=== PATIENT | female | born 1970 ===

== ENCOUNTER 2017-05-21 11:10 | Emergency (ER) | payer MEDICARE, MEDICAID ==
--- NOTE | 2017-05-21 11:25 | C.PDOC ---
History Of Present Illness 47 yo female w.o significant pMHx come in for evaluation of pain on urination, urinary frequency and hesitancy for past week associated with suprapubic pressure and discomfort, white thick discharges. Pt sts, was seen at Clinic week ago due to same complaints when was given medication without improvement. Otherwise, pt denies fever, chills, headache, sore throat, abd. pain, N/V/D, back pain, hematuria. Ambulate to ED for evaluation, not in any apparent distress. Time Seen by Provider: 05/21/17 11:16 Chief Complaint (Nursing): Female Genitourinary History Per: Patient Onset/Duration Of Symptoms: Gradual Current Symptoms Are (Timing): Still Present Past Medical History Reviewed: Historical Data, Nursing Documentation, Vital Signs Vital Signs: Last Vital Signs Temp 99 F 05/21/17 11:12 Pulse 76 05/21/17 11:12 Resp 18 05/21/17 11:12 BP 116/73 05/21/17 11:12 Pulse Ox 98 05/21/17 11:52 - Medical History PMH: Bipolar Disorder Denies: Diabetes Surgical History: No Surg Hx Family History: States: No Known Family Hx - Social History Hx Alcohol Use: Yes Hx Substance Use: No - Immunization History Hx Tetanus Toxoid Vaccination: No Hx Influenza Vaccination: No Hx Pneumococcal Vaccination: No Review Of Systems Except As Marked, All Systems Reviewed And Found Negative. Constitutional: Negative for: Fever, Chills ENT: Negative for: Throat Pain Respiratory: Negative for: Cough, Shortness of Breath Gastrointestinal: Negative for: Nausea, Vomiting, Abdominal Pain, Diarrhea Genitourinary: Positive for: Dysuria, Frequency, Vaginal Discharge. Negative for: Incontinence, Hematuria, Vaginal Bleeding, Pelvic Pain, Rash Musculoskeletal: Negative for: Back Pain Skin: Negative for: Rash Neurological: Negative for: Weakness, Headache, Dizziness Physical Exam - Physical Exam Appears: Well, Non-toxic, No Acute Distress Skin: Normal Color, Warm, Dry, No Rash Eye(s): bilateral: PERRL Oral Mucosa: Moist Throat: Normal, No Erythema, No Exudate Neck: Supple Gastrointestinal/Abdominal: Soft, Tenderness (mild suprapubic tenderness), No Distention, No Guarding Back: No CVA Tenderness Pelvic: Normal Bimanual Exam, Vaginal Discharge (scant thick white), No Cervical Motion Tenderness Extremity: Normal ROM, No Pedal Edema Neurological/Psych: Oriented x3, Normal Speech ED Course And Treatment - Laboratory Results Urine POC: Negative O2 Sat by Pulse Oximetry: 98 Pulse Ox Interpretation: Normal Progress Note: On re-evaluation, pt is afebrile, hemodynamiclay stable. non- toxic. Tolerate Po well in ED. ENT: no acute findings. Abd: benign, (-) guarding, (-) rebound. Back: (-) CVA tenderness. UA (+) WBC. UCX-pending. Pt advised and ref. to F/u with PMD, MECHANICAL ENGINEERING ADVISOR in 2-3 days for re-eavl. return if any new changes. Disposition Counseled Patient/Family Regarding: Studies Performed, Diagnosis, Need For Followup, Rx Given - Disposition Referrals: at [facility] [Outside] Disposition: HOME/ ROUTINE Disposition Time: 12:01 Condition: STABLE Additional Instructions: Encourage fluids Take medication as prescribed Follow up with PMD, MECHANICAL ENGINEERING ADVISOR in 1-2 days for re-evaluation. Return to ED if any worsening or new changes. Prescriptions: Miconazole [Miconazole 7] 100 mg VG HS #7 sup Nitrofurantoin Macrocrystals [Macrobid] 1 cap PO BID #14 cap Instructions: Urinary Tract Infection in Women (ED) Print Language: TONGAN - Clinical Impression Clinical Impression: UTI (urinary tract infection)
[2017-05-21 11:46] LABS: SQUAMOUS EPITHIAL 8 /hpf (0-5); URINE BACTERIA OCC (<OCC); URINE BILIRUBIN NEGATIVE (NEGATIVE); URINE BLOOD NEGATIVE (NEGATIVE); URINE CLARITY Hazy (Clear); URINE COLOR Yellow (YELLOW); URINE GLUCOSE (UA) NORMAL (Normal); URINE LEUKOCYTE ESTERASE 3+ Leu/uL (Negative); URINE NITRATE NEGATIVE (NEGATIVE); URINE PROTEIN NEGATIVE (NEGATIVE); URINE UROBILINOGEN NORMAL mg/dL (0.2-1.0)
[2017-05-21 12:41] VITALS: BP 107/72; PULSE 60; RESP 14; TEMP 97.3; O2SAT 100
== END 2017-05-21 12:45 | disposition home or self-care (01) ==
LOC: C.ER 11:10
DX: N39.0 Urinary tract infection, site not specified (principal)

== ENCOUNTER 2017-05-29 18:00 | Emergency (ER) | payer MEDICARE, MEDICAID ==
[2017-05-29 18:21] VITALS: BMI 28.5
[2017-05-29 18:25] VITALS: BP 100/69; PULSE 67; RESP 18; TEMP 99.1; O2SAT 98
[2017-05-29 18:47] LABS: HCG,QUALITATIVE URINE NEGATIVE (NEGATIVE)
[2017-05-29 18:48] LABS: SQUAMOUS EPITHIAL 4 /hpf (0-5); URINE BILIRUBIN NEGATIVE (NEGATIVE); URINE BLOOD NEGATIVE (NEGATIVE); URINE CLARITY Clear (Clear); URINE COLOR Yellow (YELLOW); URINE GLUCOSE (UA) NORMAL (Normal); URINE LEUKOCYTE ESTERASE 1+ Leu/uL (Negative); URINE NITRATE NEGATIVE (NEGATIVE); URINE PROTEIN NEGATIVE (NEGATIVE); URINE UROBILINOGEN NORMAL mg/dL (0.2-1.0)
--- NOTE | 2017-05-29 19:12 | C.PDOC ---
History Of Present Illness 47 y/o female presents to ED with complaints of dysuria, vaginal itching and discharge for 1 month. Symptoms are intermittent. Patient notes she was given vaginal suppositories and antibiotics last week but was only compliant to 3 days of vaginal suppositories. No abdominal pain. Patient denies fever, chills , n/v/d or any other complaints at this time. Time Seen by Provider: 05/29/17 18:34 Chief Complaint (Nursing): Female Genitourinary History Per: Patient History/Exam Limitations: no limitations Onset/Duration Of Symptoms: Days Current Symptoms Are (Timing): Still Present Past Medical History Reviewed: Historical Data, Nursing Documentation, Vital Signs Vital Signs: Last Vital Signs Temp 99.1 F 05/29/17 18:21 Pulse 67 05/29/17 18:21 Resp 18 05/29/17 18:21 BP 100/69 05/29/17 18:21 Pulse Ox 98 05/29/17 20:53 - Medical History PMH: Bipolar Disorder Other PMH: "One kidney" Family History: States: Unknown Family Hx - Social History Hx Alcohol Use: Yes Hx Substance Use: No - Immunization History Hx Tetanus Toxoid Vaccination: No Hx Influenza Vaccination: No Hx Pneumococcal Vaccination: No Review Of Systems Except As Marked, All Systems Reviewed And Found Negative. Constitutional: Negative for: Fever, Chills Gastrointestinal: Negative for: Nausea, Vomiting, Diarrhea Genitourinary: Positive for: Dysuria, Vaginal Discharge. Negative for: Vaginal Bleeding Skin: Negative for: Rash Physical Exam - Physical Exam Appears: Non-toxic, No Acute Distress Skin: Normal Color, Warm Head: Atraumatic, Normacephalic Eye(s): bilateral: Normal Inspection, EOMI Nose: Normal Oral Mucosa: Moist Chest: Symmetrical Cardiovascular: Rhythm Regular Respiratory: Normal Breath Sounds, No Accessory Muscle Use Gastrointestinal/Abdominal: Soft, No Tenderness Back: No CVA Tenderness, No Vertebral Tenderness Pelvic: Normal External Exam, No Vaginal Bleeding, Vaginal Discharge (White clumpy curd- like discharge), No Cervical Motion Tenderness Extremity: Normal ROM, Capillary Refill (<2 seconds) Neurological/Psych: Oriented x3, Normal Speech, Normal Cognition Gait: Steady ED Course And Treatment O2 Sat by Pulse Oximetry: 98 (RA) Pulse Ox Interpretation: Normal Progress Note: Discussed signs of concern and instructed strict follow up with physician/clinic in 1-2 days for further evaluation. Case discussed with Dr Giang, agreed upon plan and discharge. Reevaluation Time: 18:55 Reassessment Condition: Improved Disposition - Disposition Disposition: HOME/ ROUTINE Disposition Time: 19:09 Condition: STABLE Additional Instructions: Follow up with reptile farmer in 1-3 days without fail for further evaluation. Take medications as prescribed. Return to the emergency department at any time if symptoms persist or worsen. Prescriptions: Fluconazole [Diflucan] 150 mg PO DAILY #1 tab Miconazole/Cleanser 17 On Wipe [Monistat 3 Combo Pack] 1 each VG QPM #1 kit Instructions: Vulvovaginal Candidiasis (ED) - Clinical Impression Clinical Impression: Vulvovaginal candidiasis - Scribe Statement The provider has reviewed the documentation as recorded by the Felicianoibramesh Hutton All medical record entries made by the Felicianoibramesh were at my direction and personally dictated by me. I have reviewed the chart and agree that the record accurately reflects my personal performance of the history, physical exam, medical decision making, and the department course for this patient. I have also personally directed, reviewed, and agree with the discharge instructions and disposition.
== END 2017-05-29 19:40 | disposition home or self-care (01) ==
LOC: C.ER 18:00
DX: B37.3 Candidiasis of vulva and vagina (principal)

== ENCOUNTER 2017-06-21 14:58 | Emergency (ER) | payer MEDICARE, MEDICAID ==
[2017-06-21 14:59] VITALS: BMI 28.5
[2017-06-21 15:43] LABS: RBC URINE 20 /hpf (0-3); URINE BACTERIA RARE (<OCC); URINE BILIRUBIN NEGATIVE (NEGATIVE); URINE BLOOD 2+ (NEGATIVE); URINE COLOR Yellow (YELLOW); URINE GLUCOSE (UA) NORMAL (Normal); URINE KETONE TRACE mg/dL (NEGATIVE); URINE LEUKOCYTE ESTERASE 3+ Leu/uL (Negative); URINE PROTEIN NEGATIVE (NEGATIVE); URINE UROBILINOGEN NORMAL mg/dL (0.2-1.0); WBC URINE 427 /hpf (0-5)
[2017-06-21] MEDS ORDERED: cefTRIAXone IV 1 gm in Dextros 50 ML IVPB ONE ×2 (15:50→16:34)
[2017-06-21 16:12] LABS: BASO % 0.7 % (0.0-2.0); EOS # 0.1 K/uL (0.0-0.7); EOS % 0.9 % (0.0-4.0); HEMATOCRIT 40.5 % (34.0-47.0); LYMPH # 1.2 K/uL (1.0-4.3); LYMPH % 18.4 % (20.0-40.0); MEAN CELL VOLUME 90.2 fL (81.0-99.0); MEAN CORPUSCULAR HEMOGLOBIN 29.7 pg (27.0-31.0); MEAN CORPUSCULAR HGB CONC 32.9 g/dL (33.0-37.0); MEAN PLATELET VOLUME 8.3 fL (7.2-11.7); MONO # 0.5 K/uL (0.0-0.8); MONO % 6.9 % (0.0-10.0); RED CELL DISTRIBUTION WIDTH 12.9 % (11.5-14.5); WHITE BLOOD COUNT 6.6 K/uL (4.8-10.8)
--- NOTE | 2017-06-21 16:47 | C.PDOC ---
History Of Present Illness 47 year old female presents to the ED with complaints of recurrent UTI symptoms including pain with intercourse, pelvic pressure, and burning on urination. Patient has been evaluated twice for symptoms and was treated with antibiotics on both occasions and instructed to follow up with clinic. In last visit, patient was treated for Denita with vaginal suppositories. Patient states she has never had a menstrual cycle. She notes a Pap Smear last year and following up with STRATEGIC DEVELOPMENT MANAGER. Patient denies fever, chills, or abdominal pain. Chief Complaint (Nursing): Female Genitourinary History Per: Patient History/Exam Limitations: no limitations Onset/Duration Of Symptoms: Persistent Current Symptoms Are (Timing): Still Present Severity: Severe Pain Scale Rating Of: 7 Quality Of Discomfort: Burning Associated Symptoms: Urinary Symptoms. denies: Fever, Chills, Nausea, Vomiting , Diarrhea Recent travel outside of the [place]: No Additional History Per: Prior Records Abnormal Vaginal Bleeding: No Past Medical History Reviewed: Historical Data, Nursing Documentation, Vital Signs Vital Signs: Last Vital Signs Temp 98.6 F 06/21/17 15:01 Pulse 100 H 06/21/17 15:01 Resp 20 06/21/17 15:01 BP 111/69 06/21/17 15:01 Pulse Ox 95 06/21/17 17:12 - Medical History PMH: Bipolar Disorder, Chronic Kidney Disease Family History: States: Unknown Family Hx - Social History Hx Alcohol Use: No Hx Substance Use: No - Immunization History Hx Tetanus Toxoid Vaccination: No Hx Influenza Vaccination: No Hx Pneumococcal Vaccination: No Review Of Systems Constitutional: Negative for: Fever, Chills Cardiovascular: Negative for: Chest Pain Respiratory: Negative for: Shortness of Breath Gastrointestinal: Negative for: Nausea, Vomiting Genitourinary: Positive for: Dysuria (burning with urination ), Pelvic Pain. Negative for: Hematuria, Vaginal Bleeding Musculoskeletal: Negative for: Back Pain Physical Exam - Physical Exam Appears: Non-toxic, No Acute Distress Skin: Warm, Dry Head: Atraumatic Eye(s): bilateral: Normal Inspection, EOMI Oral Mucosa: Moist Neck: Supple Chest: Symmetrical, No Deformity Cardiovascular: Rhythm Regular Respiratory: No Wheezing Gastrointestinal/Abdominal: Soft, No Tenderness, No Distention, No Guarding, No Rebound Pelvic: Normal External Exam, No Normal Speculum Exam (painful exam ), Vaginal Discharge (Large amount of thick white curd-like discharge ), Cervical Motion Tenderness (Questionable tenderness. Not able to visualize but all of exam was painful for patient ), Other (Friable, irritated, erythematus mucousa inside of vagina upon speculum exam ) Neurological/Psych: Oriented x3, Normal Speech, Normal Cognition ED Course And Treatment - Laboratory Results Result Diagrams: 06/21/17 16:05 O2 Sat by Pulse Oximetry: 95 (room air ) Progress Note: UA sent and showed high leukocytes. Patient was given Diflucan, Zithromax, and cefTRIAXone for chronic UTI and Denita as well as precautionary STD treatment. Medical Decision Making Medical Decision Making: Patient treated for UTI, STD and denita. Instructed to f/u with STRATEGIC DEVELOPMENT MANAGER. Disposition - Disposition Referrals: Clinic,Med Surg [Primary Care Provider] - Disposition: HOME/ ROUTINE Disposition Time: 17:23 Condition: STABLE Additional Instructions: Take medications as indicated. You must follow up with your television mechanic. Prescriptions: Ciprofloxacin [Cipro] 1 tab PO BID #14 tab Instructions: Vulvovaginal Candidiasis (ED) Forms: Gen Discharge Inst Ugandan - POA Present On Arrival: None - Clinical Impression Clinical Impression: Vulvovaginal candidiasis, UTI (urinary tract infection) - Scribe Statement The provider has reviewed the documentation as recorded by the Scribe Julianna Corrigan All medical record entries made by the Scribe were at my direction and personally dictated by me. I have reviewed the chart and agree that the record accurately reflects my personal performance of the history, physical exam, medical decision making, and the department course for this patient. I have also personally directed, reviewed, and agree with the discharge instructions and disposition.
[2017-06-21 17:32] VITALS: BP 120/72; PULSE 89; RESP 18; TEMP 98.3; O2SAT 99
== END 2017-06-21 17:31 | disposition home or self-care (01) ==
LOC: SUPCPDRO 14:58 → C.ER 14:58
DX: B37.3 Candidiasis of vulva and vagina (principal); N39.0 Urinary tract infection, site not specified
CPT/HCPCS: 81001; 84703; 85025; 87086; 96365; 99285; J0696